=== PATIENT | female | born 1955 | race Caucasian/White ===

== ENCOUNTER → 2017-08-31 | Outpatient (CLI) | payer OTHER ==
--- NOTE | 2017-08-31 10:41 | WWHP ---
[facility] - HISTORY AND PHYSICAL DATE OF SERVICE: 08/31/2017 CHIEF COMPLAINT: The patient is here for her routine gynecologic exam and mammogram. HPI: This is a 62-year-old, G8, P5-0-3-5 with an LMP of 2009. The patient is without gynecologic complaints. PAST MEDICAL HISTORY: Left breast cancer in 2009 and is status post left mastectomy, but did not require adjuvant therapy. Also history of a cardiac arrhythmia and was treated with a pacemaker in 2013. MEDICATIONS: 1. Digoxin 0.182 mg daily. 2. Multivitamin daily. ALLERGIES: No known drug allergies. PAST SURGICAL HISTORY: Left breast mastectomy in 2009, pacemaker placed 2013, tubal ligation, and previous tubal reversal in the past and 2 D&Cs in the past. 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 FAMILY HISTORY: Mother has hypertension. Daughter was diagnosed with lymphoma. SOCIAL HISTORY: She denies tobacco and drug use and has 0 to 2 alcohol containing drinks per week. She is a retired. She has been spending a lot of time with her daughter in [place] who is undergoing chemotherapy for lymphoma. REVIEW OF SYSTEMS: Weight has been stable. She denies respiratory, cardiac or GI problems. PHYSICAL EXAM: Blood pressure 147/88, height 5 feet 8 inches, weight 116 pounds, BMI 19, temperature 97.9, pulse 76. This is a well-developed, well-nourished, white female, who is alert and oriented x3, in no acute distress. HEENT is within normal limits. NECK: Supple without mass or thyromegaly. CHEST AND LUNGS: Clear to auscultation. HEART: Regular rate and rhythm. The pacemaker is palpable in the area just anterior to the left axilla and this is nontender. Breast exam is negative for mass or tenderness in the right breast and the left side is consistent with previous left mastectomy. There are no abnormal masses or tenderness. Axillary exam is negative for adenopathy. BACK: Negative for CVA tenderness. ABDOMEN: Soft, nontender, without palpable masses. PELVIC EXAM: External genitalia reveals moderate atrophy without lesions. Cervix and vagina reveals [id number] atrophy without lesions. There is no evidence of prolapse. The uterus is mid position, nongravid size and nontender. There are no palpable adnexal masses or tenderness. Rectovaginal exam is negative for mass or tenderness and is negative for occult blood. EXTREMITIES: Nontender. IMPRESSION: 1. A 62-year-old menopausal female with normal gynecologic exam. 2. History of left breast cancer, status post left mastectomy with no evidence of recurrence. 3. History of osteopenia. PLAN: 1. Pap smear was deferred since she had a normal one last year. 2. Self breast examination was discussed. 3. Right diagnostic mammogram will be done today. 4. Osteoporosis prevention was discussed. I have recommended bone density testing and she states she would like to do this next year. 5. I have recommended screening colonoscopy since she has not had this done. She has been talking to her primary care physician, Dr. Burnette, regarding colorectal screening and she may be doing a Cologuard testing as an alternative to colonoscopy. This will be done through Dr. Burnette. 6. She will return in 1 year. MMODL / IJN: [id number] /
== END | disposition home or self-care (01) ==
LOC: WWCWWP 08:58
PROVIDERS: ATTEND Obstetrics & Gynecology
DX: Z01.419 Encounter for gynecological examination (general) (routine) without abnormal findings (principal)

== ENCOUNTER → 2017-08-31 | Outpatient (CLI) | payer OTHER ==
--- NOTE | 2017-09-05 08:59 | MM ---
Reason for exam: additional evaluation requested from prior study. Last mammogram was performed 1 year and 1 month ago. History: Patient is postmenopausal and has history of breast cancer at age 54. Malignant left breast needle localization of both breasts, December 12, 2009. Mastectomy of the left breast, December 2009. Excisional biopsy of the left breast, April 22, 2005. Took tamoxifen for 3 years 6 months beginning at age 54. Physical Findings: Dr. Ignacio did not find any significant physical abnormalities on exam. MG 3D Diag Mammo W/Cad RT CC and MLO view(s) were taken of the right breast. Prior study comparison: August 04, 2016, right breast MG diagnostic mammo RT w CAD. July 23, 2015, right breast MG diagnostic mammo RT w CAD. The breast tissue is heterogeneously dense. This may lower the sensitivity of mammography. No suspicious abnormality. No significant new findings when compared with previous films. These results were verbally communicated with the patient and result sheet given to the patient on 08/31/17. ASSESSMENT: Negative, BI-RAD 1 RECOMMENDATION: Follow-up diagnostic mammogram of the right breast in 1 year.
== END | disposition home or self-care (01) ==
LOC: RADMAMWWP 09:02
PROVIDERS: ATTEND Internal Medicine Hematology & Oncology
DX: Z08 Encounter for follow-up examination after completed treatment for malignant neoplasm (principal); Z85.3 Personal history of malignant neoplasm of breast
CPT/HCPCS: G0206; G0279

== ENCOUNTER → 2018-09-12 | Outpatient (CLI) | payer MEDICARE ==
[2018-09-12 09:45] VITALS: BP 136/85; PULSE 69; TEMP 97.5; BMI 19.5
--- NOTE | 2018-09-12 10:25 | P.HPOB ---
History of Present Illness H&P Date: 09/12/18 Chief Complaint: The patient is here for her routine gynecologic exam and mammogram. This is a 63-year-old 035 with an LMP of 2009. The patient is without gynecologic complaints and denies any postmenopausal bleeding. Review of Systems She is gained 9 pounds of the last year. She denies respiratory, cardiac and G.I. problems. She denies maltreatment or problems with falling. : she has occasional urinary leakage especially when she coughs. She has also had episodes where she has urinary urgency and can leak if she does not get to the bathroom on time. Past Medical History Past Medical History: Cancer (Left breast cancer in 2009 status post left mastectomy.) Additional Past Medical History / Comment(s): left breast,Tachycardia SVT requiring a pacemaker. 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 History of Any Multi-Drug Resistant Organisms: None Reported Past Surgical History: Breast Surgery (Left mastectomy), Pacemaker (2013), Tubal Ligation Additional Past Surgical History / Comment(s): D&C,Tubal reversal,left breast removal Past Anesthesia/Blood Transfusion Reactions: Postoperative Nausea & Vomiting ( PONV) Type of Cardiac Device: Permanent Pacemaker Device Placement Date:: 2013 Past Psychological History: Anxiety, Depression Smoking Status: Never smoker Past Alcohol Use History: Occasional (2 per week) Past Drug Use History: None Reported Additional History: She is and is retired. She lost her daughter to lymphoma in 11/2017. - Past Family History Daughter(s) Family Medical History: Cancer ( from lymphoma at age 40.) Mother Family Medical History: Hypertension Medications and Allergies Home Medications Medication Instructions Recorded Confirmed Type Digoxin [Lanoxin] 125 mcg PO DAILY 09/12/18 09/12/18 History Multivitamin [Multivitamins Adult 1 each PO 09/12/18 History Gummies] Sertraline [Zoloft] 25 mg PO 09/12/18 History Allergies Allergy/AdvReac Type Severity Reaction Status Date / Time No Known Allergies Allergy Unverified 09/12/18 09:33 Exam Vital Signs Temp Pulse BP 09/12/18 09:35 97.5 F L 69 136/85 Intake and Output 09/11/18 09/12/18 09/12/18 22:59 06:59 14:59 Other: Weight 56.699 kg Height 5'7", weight 125 pounds, BMI 19.6. This is a well-developed well-nourished white female who is alert and oriented times 3 in no acute distress. HEENT: Within normal limits. NECK: Supple without mass or thyromegaly. CHEST AND LUNGS: Clear to auscultation. She has a palpable pacemaker in the left sub clavicular area. This is nontender. HEART: Regular rate and rhythm. BREASTS: left is consistent with previous mastectomy. There are no masses in this area. The right breast is without mass or discharge. AXILLARY EXAM: Negative for adenopathy. BACK: Negative for CVA tenderness. ABDOMEN: Soft, nontender, without palpable masses. PELVIC EXAM: Normal external genitalia with mild atrophy. Cervix and vagina appear normal with mild atrophy. There is no unusual discharge. There is no evidence of prolapse. The uterus is midposition, nongravid size and nontender. There are no palpable adnexal masses or tenderness. RECTAL EXAM: rectovaginal exam is negative for mass or tenderness and is negative for occult blood. EXTREMITIES: Nontender. IMPRESSION: 1. 63-year-old menopausal female with normal gynecologic exam. 2. Probable mild mixed urinary incontinence without any significant physical findings at this time. 3. History of osteopenia. 4. History of left breast cancer, status post left mastectomy with no evidence of recurrence. PLAN: 1. Pap smear was performed. 2. Self breast awareness was discussed with the patient. 3. Diagnostic right mammogram will be done today. 4. Osteoporosis prevention was discussed. I have stressed the importance of adequate calcium, vitamin D and regular exercise. Recommended amounts of calcium and vitamin D were also discussed. I have recommended repeating her bone density testing. She would like to do this next year. 5. I have recommended screening colonoscopy. She states she has discussed this with Dr. Burnette and his plan on doing Cologard testing instead. 6. She plans to get her flu shot in the near future. 7. I have recommended Kegal exercises. We have discussed how to do these. I have recommended she do 3 sets of 20 reps daily. 8. She will return in one year.
--- NOTE | 2018-09-12 11:08 | MM ---
Reason for exam: additional evaluation requested from prior study. Last mammogram was performed 1 year ago. History: Patient is postmenopausal and has history of breast cancer at age 54. Malignant left breast needle localization of both breasts, December 12, 2009. Mastectomy of the left breast, December 2009. Excisional biopsy of the left breast, April 22, 2005. Took tamoxifen for 3 years 6 months beginning at age 54. MG 3D Diag Mammo W/Cad RT CC and MLO view(s) were taken of the right breast. Technologist: Mariana Omalley, RT (R)(M) Prior study comparison: August 31, 2017, right breast MG 3d diag mammo w/cad RT. August 04, 2016, right breast MG diagnostic mammo RT w CAD. The breast tissue is heterogeneously dense. This may lower the sensitivity of mammography. No significant new findings when compared with previous films. These results were verbally communicated with the patient and result sheet given to the patient on 09/12/18. ASSESSMENT: Benign, BI-RAD 2 RECOMMENDATION: Follow-up diagnostic mammogram of the right breast in 1 year.
== END ==
LOC: WWCWWP 09:04
PROVIDERS: ATTEND Obstetrics & Gynecology
DX: Z08 Encounter for follow-up examination after completed treatment for malignant neoplasm (principal); Z85.3 Personal history of malignant neoplasm of breast
CPT/HCPCS: 77065; G0279; 77061

== ENCOUNTER → 2019-09-18 | Outpatient (CLI) | payer MEDICARE ==
[2019-09-18 08:46] VITALS: BP 149/94; PULSE 70; RESP 16; TEMP 97.7
--- NOTE | 2019-09-18 09:22 | P.HPOB ---
History of Present Illness H&P Date: 09/18/19 Chief Complaint: The patient is here for her routine gynecologic exam. This is a 64-year-old with an LMP of 2009. The patient is without gynecologic complaints. Review of Systems Her weight has been stable. She denies respiratory, cardiac and G.I. problems. She denies maltreatment or problems with falling. : she denies any significant problems with urinary leakage, but occasionally has to get to the bathroom right away. Past Medical History Past Medical History: Cancer Additional Past Medical History / Comment(s): left breast cancer 2009, Tachycardia SVT requiring a pacemaker. 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 History of Any Multi-Drug Resistant Organisms: None Reported Past Surgical History: Breast Surgery, Pacemaker, Tubal Ligation Additional Past Surgical History / Comment(s): D&C,Tubal reversal,left mastectomy. Past Anesthesia/Blood Transfusion Reactions: Postoperative Nausea & Vomiting (PONV) Type of Cardiac Device: Permanent Pacemaker Device Placement Date:: 2013 Past Psychological History: Anxiety, Depression Smoking Status: Never smoker Past Alcohol Use History: Occasional (0-2 per week) Past Drug Use History: None Reported Additional History: She is and is not sexually active. She is retired. - Past Family History Daughter(s) Family Medical History: Cancer Additional Family Medical History / Comment(s): from lymphoma at age 40. Mother Family Medical History: Hypertension Medications and Allergies Home Medications Medication Instructions Recorded Confirmed Type Digoxin [Lanoxin] 125 mcg PO DAILY 09/12/18 09/18/19 History Multivitamin [Multivitamins Adult 1 each PO HS 09/12/18 09/18/19 History Gummies] Sertraline [Zoloft] 25 mg PO DAILY 09/12/18 09/18/19 History Allergies Allergy/AdvReac Type Severity Reaction Status Date / Time No Known Allergies Allergy Unverified 09/18/19 08:46 Exam Vital Signs Temp Pulse Resp BP Pulse Ox 09/18/19 08:44 97.7 F 70 16 149/94 100 Intake and Output 09/17/19 09/18/19 09/18/19 22:59 06:59 14:59 Other: Weight 56.245 kg Height 5 feet 7 inches, weight 124 pounds, BMI 19.4. This is a well-developed well-nourished white female who is alert and oriented times 3 in no acute distress. HEENT: Within normal limits. NECK: Supple without mass or thyromegaly. CHEST AND LUNGS: Clear to auscultation. The patient's pacemaker is palpable in the upper left chest region. HEART: Regular rate and rhythm. BREASTS: without mass or discharge. Left is consistent with previous mastectomy AXILLARY EXAM: Negative for adenopathy. BACK: Negative for CVA tenderness. ABDOMEN: Soft, nontender, without palpable masses. PELVIC EXAM: Normal external genitalia with mild to moderate atrophy. Cervix and vagina appear normal with mild to moderate atrophy. There is no unusual discharge. There is no evidence of prolapse. The uterus is midposition, nongravid size and nontender. There are no palpable adnexal masses or tenderness. RECTAL EXAM: Rectovaginal exam is negative for mass or tenderness and is negative for occult blood. EXTREMITIES: Nontender. IMPRESSION: 1. 64-year-old menopausal female with normal gynecologic exam. 2. History of osteopenia. 3. History of left breast cancer status post left mastectomy with no evidence of recurrence. PLAN: 1. Pap smears have been discontinued since she is considered low risk. She is greater than 65 years of age, has had no history of cervical problems and has been adequately screened. 2. Self breast awareness was discussed with the patient. 3. Diagnostic right mammogram is recommended and she is scheduled to have this done tomorrow. The order slip was given to the patient for this. 4. Osteoporosis prevention was discussed. I have stressed the importance of adequate calcium, vitamin D and regular exercise. Recommended amounts of c alcium and vitamin D were also discussed. I have recommended bone density screening since her last one was done in 2014. The order slip was given to the patient for this. 5. I have recommended that she take her own blood pressures at home on a regular basis. She will follow-up with Dr. Burnette or clinical sciences professor for blood pressure elevations. 6. She states she had cologuard testing earlier this year and is declining colonoscopies. 7. The patient was advised to return in 1-2 years for her well woman examination.
== END | disposition home or self-care (01) ==
LOC: WWCWWP 08:24
PROVIDERS: ATTEND Obstetrics & Gynecology
DX: Z53.9 Procedure and treatment not carried out, unspecified reason (principal)

== ENCOUNTER → 2019-09-19 | Outpatient (CLI) | payer MEDICARE ==
--- NOTE | 2019-09-19 14:09 | MM ---
Reason for exam: additional evaluation requested from prior study. Last mammogram was performed 1 year ago. History: Patient is postmenopausal and has history of breast cancer at age 54. Malignant left breast needle localization of both breasts, December 12, 2009. Mastectomy of the left breast, December 2009. Excisional biopsy of the left breast, April 22, 2005. Took tamoxifen for 3 years 6 months beginning at age 54. Physical Findings: Nurse did not find any significant physical abnormalities on exam. MG 3D Diag Mammo W/Cad RT CC and MLO view(s) were taken of the right breast. Prior study comparison: September 12, 2018, right breast MG 3d diag mammo w/cad RT. August 31, 2017, right breast MG 3d diag mammo w/cad RT. The breast tissue is heterogeneously dense. This may lower the sensitivity of mammography. No suspicious abnormality. No significant new findings when compared with previous films. These results were verbally communicated with the patient and result sheet given to the patient on 09/19/19. ASSESSMENT: Negative, BI-RAD 1 RECOMMENDATION: Follow-up diagnostic mammogram of the right breast in 1 year.
== END | disposition home or self-care (01) ==
LOC: RADMAMWWP 12:34
PROVIDERS: ATTEND Internal Medicine Hematology & Oncology
DX: Z08 Encounter for follow-up examination after completed treatment for malignant neoplasm (principal); Z85.3 Personal history of malignant neoplasm of breast
CPT/HCPCS: 77061; 77065

== ENCOUNTER → 2020-09-24 | Outpatient (CLI) | payer MEDICARE ==
[2020-09-24 09:31] VITALS: BP 136/87; PULSE 71; RESP 16; TEMP 97.8
--- NOTE | 2020-09-24 10:16 | P.HPOB ---
History of Present Illness H&P Date: 09/24/20 Chief Complaint: The patient is here for her routine gynecologic exam. This is a 65-year-old with an LMP of 2009. The patient is without gynecologic complaints. Review of Systems The patient's weight has been stable over the last year. She denies respiratory, cardiac, or G.I. problems. Past Medical History Past Medical History: Cancer, Hyperlipidemia Additional Past Medical History / Comment(s): left [id number],Tachycardia SVT requiring a pacemaker. 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 History of Any Multi-Drug Resistant Organisms: None Reported Past Surgical History: Breast Surgery, Pacemaker, Tubal Ligation Additional Past Surgical History / Comment(s): D&C,Tubal reversal,left mastectomy Past Anesthesia/Blood Transfusion Reactions: Postoperative Nausea & Vomiting (PONV) Type of Cardiac Device: Permanent Pacemaker Device Placement Date:: 2013 Past Psychological History: Anxiety, Depression Smoking Status: Never smoker Past Alcohol Use History: Occasional (3 or 4 per month) Past Drug Use History: None Reported Additional History: She is and is not sexually active. She is retired, but now is working at a [employer]. - Past Family History Daughter(s) Family Medical History: Cancer Additional Family Medical History / Comment(s): from lymphoma at age 40. Mother Family Medical History: Hypertension Medications and Allergies Home Medications Medication Instructions Recorded Confirmed Type Digoxin [Lanoxin] 125 mcg PO DAILY 09/12/18 09/24/20 History Multivitamin [Multivitamins Adult 1 each PO HS 09/12/18 09/24/20 History Gummies] Sertraline [Zoloft] 25 mg PO DAILY 09/12/18 09/24/20 History Atorvastatin [Lipitor] 20 mg PO HS 09/24/20 09/24/20 History Cholecalciferol [Vitamin D3 (25 1,000 unit PO DAILY 09/24/20 09/24/20 History Mcg = 1000 Iu)] Allergies Allergy/AdvReac Type Severity Reaction Status Date / Time pneumococcal vaccine AdvReac Swelling Unverified 09/24/20 09:24 Exam Vital Signs Temp Pulse Resp BP Pulse Ox 09/24/20 09:26 97.8 F 71 16 136/87 100 Intake and Output 09/23/20 09/24/20 09/24/20 22:59 06:59 14:59 Other: Weight 56.245 kg Height 5 feet 7 inches, weight 124 pounds, BMI 19.4. This is a well-developed well-nourished white female who is alert and oriented times 3 in no acute distress. HEENT: Within normal limits. NECK: Supple without mass or thyromegaly. CHEST AND LUNGS: Clear to auscultation. There is a palpable pacemaker inferior to the left clavicle. This is nontender. HEART: Regular rate and rhythm. BREASTS: The left is consistent with previous mastectomy. There are no masses. The right breast is without mass or discharge. AXILLARY EXAM: Negative for adenopathy. BACK: Negative for CVA tenderness. ABDOMEN: Soft, nontender, without palpable masses. PELVIC EXAM: Normal external genitalia with mild to moderate atrophy. Cervix and vagina appear normal mild to moderate atrophy. There is no unusual discharge. There is no evidence of prolapse. The uterus is midposition, nongravid size and nontender. There are no palpable adnexal masses or tenderness. RECTAL EXAM: Rectovaginal exam is negative for mass or tenderness and is negative for occult blood. EXTREMITIES: Nontender. IMPRESSION: 1. 65-year-old menopausal female with normal gynecologic exam. 2. History of left breast cancer status post left mastectomy with no evidence of recurrence on exam today. 3. History of osteopenia. PLAN: 1. Pap smears have been discontinued since she is considered low risk and has had adequate screening. 2. Self breast awareness was discussed with the patient. 3. Diagnostic right mammogram is due and the order slip was given to the patient for this. 4. Osteoporosis prevention was discussed. I have stressed the importance of adequate calcium, vitamin D and regular exercise. Recommended amounts of calcium and vitamin D were also discussed. I have recommended repeating her bone density testing and the order slip was given to the patient for this. 5. She has done Cologuard testing for colo-rectal screening through her PCP. 6. She was advised to return in one year for her annual well woman exam.
== END | disposition home or self-care (01) ==
LOC: WWCWWP 09:14
PROVIDERS: ATTEND Obstetrics & Gynecology
DX: Z53.9 Procedure and treatment not carried out, unspecified reason (principal)

== ENCOUNTER → 2020-12-08 | Outpatient (CLI) | payer MEDICARE ==
--- NOTE | 2020-12-08 11:55 | MM ---
Reason for exam: additional evaluation requested from prior study. Last mammogram was performed 1 year and 3 months ago. History: Patient is postmenopausal and has history of breast cancer at age 54. Malignant left breast needle localization of both breasts, December 12, 2009. Mastectomy of the left breast, December 2009. Excisional biopsy of the left breast, April 22, 2005. Took hormonal contraceptives for 3 months. Took tamoxifen for 3 years 6 months beginning at age 54. Physical Findings: Nurse did not find any significant physical abnormalities on exam. MG 3D Diag Mammo W/Cad RT CC and MLO view(s) were taken of the right breast. Prior study comparison: September 19, 2019, right breast MG 3d diag mammo w/cad RT. September 12, 2018, right breast MG 3d diag mammo w/cad RT. The breast tissue is heterogeneously dense. This may lower the sensitivity of mammography. Punctate 12 o'clock calcification is unchanged. Nurse palpated thickening at 5-6 o'clock. These results were verbally communicated with the patient and result sheet given to the patient on 12/08/20. ASSESSMENT: Incomplete: need additional imaging evaluation, BI-RAD 0 RECOMMENDATION: Ultrasound of the right breast.
--- NOTE | 2020-12-08 11:58 | USB ---
Reason for exam: additional evaluation requested from abnormal screening. History: Patient is postmenopausal and has history of breast cancer at age 54. Malignant left breast needle localization of both breasts, December 12, 2009. Mastectomy of the left breast, December 2009. Excisional biopsy of the left breast, April 22, 2005. Took hormonal contraceptives for 3 months. Took tamoxifen for 3 years 6 months beginning at age 54. US Breast Limited RT Right limited breast ultrasound including focal area of concern, retroareolar and axilla demonstrates a 1.5 x 1.1 x 1.0cm lymph node at the axilla, 5mm thickness, likely reactive. No cystic or solid lesion seen. Scanned 12-5 o'clock. No abnormality at the nurse palpated 5 o'clock thickening. These results were verbally communicated with the patient and result sheet given to the patient on 12/08/20. ASSESSMENT: Probably benign, BI-RAD 3 RECOMMENDATION: Ultrasound of the right breast in 3 months for axillary nodes that are excessively thickened and borderline enlarged, likely reactive to Covid vaccine. MTDD
== END ==
LOC: RADMAMWWP 10:04
PROVIDERS: ATTEND Internal Medicine Hematology & Oncology
DX: R92.2 Inconclusive mammogram (principal); Z85.3 Personal history of malignant neoplasm of breast; Z78.0 Asymptomatic menopausal state
CPT/HCPCS: 77065; 76642; G0279; 77061

== ENCOUNTER → 2021-03-10 | Outpatient (CLI) | payer MEDICARE ==
--- NOTE | 2021-03-10 14:20 | USB ---
Reason for exam: clinical finding. History: Patient is postmenopausal and has history of breast cancer at age 54. Malignant left breast needle localization of both breasts, December 12, 2009. Mastectomy of the left breast, December 2009. Excisional biopsy of the left breast, April 22, 2005. Took hormonal contraceptives for 3 months. Took tamoxifen for 3 years 6 months beginning at age 54. Physical Findings: Nurse did not find any significant physical abnormalities on exam. US Breast Axilla RT Right breast axilla ultrasound demonstrates a 2.4 x 1.0 x 0.7cm oval lymph node at the axilla, thickened cortex 3.5mm likely reactive 3 month follow up right axillary ultrasound. These results were verbally communicated with the patient and result sheet given to the patient on 03/10/21. ASSESSMENT: Probably benign, BI-RAD 3 RECOMMENDATION: Ultrasound of the right breast in 3 months.
== END | disposition home or self-care (01) ==
LOC: RADUSWWP 13:26
PROVIDERS: ATTEND Internal Medicine Hematology & Oncology
DX: I89.8 Other specified noninfective disorders of lymphatic vessels and lymph nodes (principal); Z85.3 Personal history of malignant neoplasm of breast; Z78.0 Asymptomatic menopausal state

== ENCOUNTER → 2021-07-06 | Outpatient (CLI) | payer MEDICARE ==
--- NOTE | 2021-07-06 09:58 | USB ---
Reason for exam: follow-up at short interval from prior study. History: Patient is postmenopausal and has history of breast cancer at age 54. Malignant left breast needle localization of both breasts, December 12, 2009. Mastectomy of the left breast, December 2009. Excisional biopsy of the left breast, April 22, 2005. Took hormonal contraceptives for 3 months. Took tamoxifen for 3 years 6 months beginning at age 54. Physical Findings: Nurse did not find any significant physical abnormalities on exam. US Breast Axilla RT Right breast axilla ultrasound demonstrates a 1.1 x 1.0 x 0.8cm lesion with 3mm persistent thickened cortex at the axilla and a 1.3 x 1.0 x 0.8cm lesion with 2mm cortex at the axilla. Compared to 03/10/21 ultrasound. Thickening is persistent, 6 months from vaccine. Other etiologies should be considered. Consider PET/CT or CT of chest. These results were verbally communicated with the patient and result sheet given to the patient on 07/06/21. ASSESSMENT: Suspicious, BI-RAD 4 RECOMMENDATION: Further imaging of the right breast. (see above discussion) Surgical consultation of the right breast. Called Dr. Butt's office with mammographic findings. PRELIMINARY REPORT CALLED AND FAXED TO DR. BUTT ON 07/06/21.
== END | disposition home or self-care (01) ==
LOC: RADUSWWP 08:49
PROVIDERS: ATTEND Internal Medicine Hematology & Oncology
DX: N64.89 Other specified disorders of breast (principal); Z78.0 Asymptomatic menopausal state; Z85.3 Personal history of malignant neoplasm of breast; Z79.3 Long term (current) use of hormonal contraceptives

== ENCOUNTER 2021-07-15 08:47 | Day surgery (SDC) | payer MEDICARE ==
[2021-07-15 09:26] VITALS: PULSE 70; TEMP 98
[2021-07-15 10:35] VITALS: BP 149/82; RESP 16
--- NOTE | 2021-07-15 11:58 | US ---
ULTRASOUND GUIDED CORE BIOPSY RIGHT AXILLA LYMPH NODE: CLINICAL HISTORY: Right axilla lymphadenopathy FINDINGS: The procedure was explained to the patient. The risks, complications, benefits and alternatives were discussed and any questions were answered. Informed consent was obtained. Patient was placed supin e on the ultrasound table and prepped and draped in the usual sterile fashion. Utilizing a 18 gauge needle, five passes were made into the requested right axilla lymph node. Patient was stable throughout the procedure. Pathology is pending. All elements of maximal barrier technique were utilized. IMPRESSION: 1. Successful ultrasound guided core biopsy right axilla lymph node.
== END 2021-07-15 10:33 | disposition home or self-care (01) ==
LOC: RADPROMAIN 08:47
PROVIDERS: ATTEND Internal Medicine Hematology & Oncology
DX: C83.04 Small cell B-cell lymphoma, lymph nodes of axilla and upper limb (principal); C85.94 Non-Hodgkin lymphoma, unspecified, lymph nodes of axilla and upper limb; Z85.3 Personal history of malignant neoplasm of breast
CPT/HCPCS: 38505; 76942; 88305; 88341; 88342

== ENCOUNTER → 2021-08-24 | Outpatient (CLI) | payer MEDICARE ==
--- NOTE | 2021-08-25 09:30 | CT ---
EXAMINATION TYPE: CT ChestAbdPelvis w con DATE OF EXAM: 08/24/2021 COMPARISON: None HISTORY: h/o lympoma CT DLP: 460.2 mGycm Automated exposure control for dose reduction was used. CONTRAST: CT scan of the chest, abdomen and pelvis is performed with Oral Contrast and with IV Contrast, patien t injected with 80 mL of Isovue 300. FINDINGS: LUNGS: The lungs are grossly clear, there is no concerning parenchymal mass or nodule identified. T here is no pleural effusion or pneumothorax seen. The tracheobronchial tree is patent. Apical pleura l thickening noted and changes suggestive of mild COPD. There is a 4 mm nodules seen involving the bria ng bases bilaterally with 2 on the left and one on the right including image 52 on the right and imag e 55 on the left too small to characterize but likely benign. Additional right lower lobe pulmonary n odule measuring 4 mm axial image 42. MEDIASTINUM: There is shotty adenopathy in the axilla bilaterally with the largest lymph node measuri ng a short axis of 1 cm on the right. Within the hilum and mediastinum there also appears to be evidence of adenopathy with the largest lym ph node seen in the subcarinal region measuring 1.3 cm and in the right hilum measuring 1.1 cm in karime rt axis. Cardiac device with cardiac leads noted. OTHER: No additional significant abnormality is seen. LIVER/GB: No significant abnormality is appreciated. PANCREAS: No significant abnormality is seen. SPLEEN: No significant abnormality is seen. ADRENALS: No significant abnormality is seen. KIDNEYS: 5 mm hypodensity right upper pole kidney most suggestive of tiny cysts. BOWEL: No significant abnormality is seen. LYMPH NODES: There is a single retroperitoneal the lymph node on axial image 78 measuring a short axi s of 1.4 cm. OSSEOUS STRUCTURES: No significant abnormality is seen. 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 Arthropathy of the SI joints. Disc space s are well-maintained. IMPRESSION: 1. Mild adenopathy as measured above involving the mediastinum, axilla and hilum with a single pathol ogic lymph node in the retroperitoneum on the left measuring a short axis of 1.4 cm, left para-aortic region. 2. There are multiple sub-5 mm pulmonary nodules too small to characterize but likely benign. Six-mon th follow-up could be obtained to confirm stability.
== END | disposition home or self-care (01) ==
LOC: RADCTMAIN 14:57
PROVIDERS: ATTEND Internal Medicine Hematology & Oncology
DX: R59.0 Localized enlarged lymph nodes (principal); R91.8 Other nonspecific abnormal finding of lung field; Z85.72 Personal history of non-Hodgkin lymphomas
CPT/HCPCS: 82565; 84520; 71260; 74177; 36415; Q9967

== ENCOUNTER → 2022-01-20 | Outpatient (CLI) | payer MEDICARE ==
[2022-01-20 09:30] VITALS: BP 136/83; PULSE 70; RESP 17; TEMP 97.8
--- NOTE | 2022-01-20 10:08 | P.HPOB ---
History of Present Illness H&P Date: 01/20/22 Chief Complaint: The patient is here for her routine gynecologic exam and ma mmogram. This is a 66-year-old [id number] with an LMP of 2009. The patient is without gynecologic complaints. Review of Systems The patient has lost 6 pounds over the last year. She denies respiratory, cardiac, or G.I. problems. Past Medical History Past Medical History: Cancer, Hyperlipidemia Additional Past Medical History / Comment(s): Left breastCA 2009,Tachycardia SVT requiring a pacemaker. Low-grade lymphoma (Dr. Mar moreno). 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 History of Any Multi-Drug Resistant Organisms: None Reported Past Surgical History: Breast Surgery, Pacemaker, Tubal Ligation Additional Past Surgical History / Comment(s): D&C,Tubal reversal,left mastectomy Past Anesthesia/Blood Transfusion Reactions: Postoperative Nausea & Vomiting (PONV) Type of Cardiac Device: Permanent Pacemaker Device Placement Date:: 2013 Past Psychological History: Anxiety, Depression Smoking Status: Never smoker Past Alcohol Use History: Occasional (1 per week) Past Drug Use History: None Reported Additional History: She is and is not sexually active. She is retired, but now works at a [employer]. - Past Family History Daughter(s) Family Medical History: Cancer Additional Family Medical History / Comment(s): from lymphoma at age 40. Mother Family Medical History: Hypertension Medications and Allergies Home Medications Medication Instructions Recorded Confirmed Type Multivitamin [Multivitamins Adult 1 each PO HS 09/12/18 07/15/21 History Gummies] Sertraline [Zoloft] 25 mg PO DAILY 09/12/18 07/15/21 History Atorvastatin [Lipitor] 20 mg PO HS 09/24/20 07/15/21 History Cholecalciferol [Vitamin D3 (25 1,000 unit PO DAILY 09/24/20 07/15/21 History Mcg = 1000 Iu)] Acetaminophen Tab [Tylenol] 325 mg PO Q4H PRN 07/09/21 07/15/21 History Diltiazem HCl [Cardizem] 120 mg PO DAILY 07/09/21 07/15/21 History Allergies Allergy/AdvReac Type Severity Reaction Status Date / Time pneumococcal vaccine AdvReac Swelling Verified 01/20/22 09:24 Exam Vital Signs Temp Pulse Resp BP Pulse Ox 01/20/22 09:27 97.8 F 70 17 136/83 99 Intake and Output 01/19/22 01/20/22 01/20/22 22:59 06:59 14:59 Other: Weight 53.524 kg Height 5 feet 6 inches, weight 118 pounds, BMI 19.0. This is a well-developed well-nourished white female who is alert and oriented times 3 in no acute distress. HEENT: Within normal limits. NECK: Supple without mass or thyromegaly. CHEST AND LUNGS: Clear to auscultation. A pacemaker is palpable in the left subclavicular area and is nontender. HEART: Regular rate and rhythm. BREASTS: Left side is consistent with a left mastectomy which is well healed. There are no masses. The right breast is without mass or discharge. AXILLARY EXAM: Negative for adenopathy. BACK: Negative for CVA tenderness. ABDOMEN: Soft, nontender, without palpable masses. PELVIC EXAM: Normal external genitalia with mild to moderate atrophy. Cervix and vagina appear normal mild to moderate atrophy. There is no unusual discharge. There is no evidence of prolapse. The uterus is midposition, nongravid size and nontender. There are no palpable adnexal masses or tenderness. RECTAL EXAM: Rectovaginal exam is negative for mass or tenderness and is negative for occult blood. EXTREMITIES: Nontender. IMPRESSION: 1. 66-year-old menopausal female with normal gynecologic exam. 2. History of left breast cancer status post left mastectomy with no evidence of recurrence on exam today. 3. History of osteopenia. PLAN: 1. Pap smears have been discontinued. 2. Self breast awareness was discussed with the patient. We have also discussed symptoms associated with inflammatory breast cancer. 3. Diagnostic right mammogram will be done today. 4. Osteoporosis prevention was discussed. I have stressed the importance of adequate calcium, vitamin D and regular exercise. Recommended amounts of calcium and vitamin D were also discussed. I have recommended bone density testing since her last one was about 7 years ago. The order slip was given to the patient for this. She states she will do this later in the year since she will be very busy in the next several weeks. 5. Colorectal cancer screening was discussed. She states she will be doing Cologuard testing through her PCP. 6. She has completed her Covid vaccination series and did receive a booster. 7. She was advised to return in one year for her annual well woman exam.
--- NOTE | 2022-01-20 10:31 | MM ---
Reason for exam: additional evaluation requested from prior study. Last mammogram was performed 1 year and 1 month ago. History: Patient is postmenopausal, has history of breast cancer at age 54, and history of other cancer. Malignant left breast needle localization of both breasts, December 12, 2009. Mastectomy of the left breast, December 2009. Excisional biopsy of the left breast, April 22, 2005. Took hormonal contraceptives for 3 months. Took tamoxifen for 3 years 6 months beginning at age 54. Physical Findings: A clinical breast exam by your physician is recommended on an annual basis and results should be correlated with mammographic findings. MG 3D Diag Mammo W/Cad RT CC and MLO view(s) were taken of the right breast. Prior study comparison: December 08, 2020, right breast MG 3d diag mammo w/cad RT. September 19, 2019, right breast MG 3d diag mammo w/cad RT. The breast tissue is heterogeneously dense. This may lower the sensitivity of mammography. No significant new findings when compared with previous films. Results were given to the patient verbally at the time of the exam. ASSESSMENT: Benign, BI-RAD 2 RECOMMENDATION: Routine screening mammogram of the right breast in 1 year.
== END ==
LOC: WWCWWP 09:11
PROVIDERS: ATTEND Obstetrics & Gynecology
DX: Z01.419 Encounter for gynecological examination (general) (routine) without abnormal findings (principal); Z85.3 Personal history of malignant neoplasm of breast; E78.5 Hyperlipidemia, unspecified; F41.9 Anxiety disorder, unspecified; F32.A Depression, unspecified; Z90.12 Acquired absence of left breast and nipple; Z78.0 Asymptomatic menopausal state; Z87.39 Personal history of other diseases of the musculoskeletal system and connective tissue; Z88.7 Allergy status to serum and vaccine
CPT/HCPCS: 77065; G0279; 77061

== ENCOUNTER → 2023-03-01 | Outpatient (CLI) | payer MEDICARE ==
[2023-03-01 10:28] VITALS: BP 141/88; PULSE 68; RESP 17; TEMP 98.7
--- NOTE | 2023-03-01 11:02 | P.HPOB ---
History of Present Illness H&P Date: 03/01/23 Chief Complaint: The patient is here for her routine gynecologic exam and ma mmogram. This is a 67-year-old with an LMP of 2009. She is without gynecologic complaints and denies any postmenopausal bleeding. Review of Systems The patient has gained 15 pounds over the last year. She denies respiratory, cardiac, or G.I. problems. Past Medical History Past Medical History: Cancer, Hyperlipidemia Additional Past Medical History / Comment(s): Left breastCA 2009,Tachycardia SVT requiring a pacemaker. Low-grade lymphoma (Dr. Mar moreno). Osteopenia. 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 History of Any Multi-Drug Resistant Organisms: None Reported Past Surgical History: Breast Surgery, Pacemaker, Tubal Ligation Additional Past Surgical History / Comment(s): D&C,Tubal reversal,left mastectomy. Past Anesthesia/Blood Transfusion Reactions: Postoperative Nausea & Vomiting (PONV) Type of Cardiac Device: Permanent Pacemaker Device Placement Date:: 2013 Past Psychological History: Anxiety, Depression Smoking Status: Never smoker Past Alcohol Use History: Occasional (3 or 4 per week.) Past Drug Use History: None Reported Additional History: She is and is not sexually active. She is retired and plans to travel in her motor home. - Past Family History Daughter(s) Family Medical History: Cancer Additional Family Medical History / Comment(s): from lymphoma at age 40. Mother Family Medical History: Hypertension Medications and Allergies Home Medications Medication Instructions Recorded Confirmed Type Multivitamin [Multivitamins Adult 1 each PO HS 09/12/18 03/01/23 History Gummies] Sertraline [Zoloft] 25 mg PO DAILY 09/12/18 03/01/23 History Atorvastatin [Lipitor] 20 mg PO HS 09/24/20 03/01/23 History Cholecalciferol [Vitamin D3 (25 1,000 unit PO DAILY 09/24/20 03/01/23 History Mcg = 1000 Iu)] Acetaminophen Tab [Tylenol] 325 mg PO Q4H PRN 07/09/21 03/01/23 History dilTIAZem HCL [Cardizem] 120 mg PO DAILY 07/09/21 03/01/23 History Allergies Allergy/AdvReac Type Severity Reaction Status Date / Time pneumococcal vaccine AdvReac Swelling Verified 03/01/23 10:21 Exam Vital Signs Temp Pulse Resp BP Pulse Ox 03/01/23 10:24 98.7 F 68 17 141/88 99 Intake and Output 02/28/23 03/01/23 03/01/23 22:59 06:59 14:59 Other: Weight 60.328 kg Height 5 feet 7 inches, weight 133 pounds, BMI 20.8. This is a well-developed well-nourished white female who is alert and oriented times 3 in no acute distress. HEENT: Within normal limits. NECK: Supple without mass or thyromegaly. CHEST AND LUNGS: Clear to auscultation. HEART: Regular rate and rhythm. BREASTS: She is status post left mastectomy with no left-sided masses or skin changes. The right breast is without mass or discharge. AXILLARY EXAM: Negative for adenopathy. BACK: Negative for CVA tenderness. ABDOMEN: Soft, nontender, without palpable masses. PELVIC EXAM: Normal external genitalia with mild to moderate atrophy. Cervix and vagina appear normal with mild atrophy. There is no unusual discharge. There is no evidence of prolapse. The uterus is midposition, nongravid size and nontender. There are no palpable adnexal masses or tenderness. RECTAL EXAM: Rectovaginal exam is negative for mass or tenderness and is negative for occult blood. EXTREMITIES: Nontender. IMPRESSION: 1. 67-year-old menopausal female status post left mastectomy in 2009, with normal gynecologic exam. No evidence of recurrence of the breast cancer. 2. History of osteopenia. PLAN: 1. Pap smears have been discontinued. 2. Self breast awareness was discussed with the patient. We have also discu ssed symptoms associated with inflammatory breast cancer. 3. Mammogram will be done today. 4. Osteoporosis prevention was discussed. I have stressed the importance of adequate calcium, vitamin D and regular exercise. Recommended amounts of calcium and vitamin D were also discussed. Her last bone density test was done in 2014. I recommended repeating the bone density test and the order slip was given to the patient for this. 5. Colorectal cancer screening has been done through her PCP in the form of Cologuard which was last done in 2021. 6. She was advised to return in one year for her annual well woman exam.
--- NOTE | 2023-03-02 12:26 | MM ---
Reason for Exam: Screening (asymptomatic). Last mammogram was performed 1 year(s) and 1 month(s) ago. Patient History: Menarche at age 14. First Full-Term at age 19. Postmenopausal. Patient has history of breast feeding. Breast cancer, left, age 54. Other cancer, age 66. Hormonal Contraceptives for 3 months. Tamoxifen, starting at age 54 for 3 years, 6 months. 12/2009, Mastectomy on the Left side. 12/12/2009, Bilateral Malignant Excisional Biopsy. Prior Study Comparison: 08/31/2017 Right Diagnostic Mammogram, [facility]. 09/12/2018 Right Diagnostic Mammogram, [facility]. 09/19/2019 Right Diagnostic Mammogram, [facility]. 12/08/2020 Right Diagnostic Mammogram, [facility]. 01/20/2022 Right Diagnostic Mammogram, [facility]. Tissue Density: Right: The breast tissue is heterogeneously dense. This may lower the sensitivity of mammography. Findings: Analyzed By CAD. Benign-appearing vascular calcification in the upper outer right breast is redemonstrated. There is no suspicious no group of microcalcifications or new suspicious mass in the right breast. Overall Assessment: Benign, BI-RAD 2 Management: Screening Mammogram of the right breast in 1 year. . Patient should continue monthly self-breast exams. A clinical breast exam by your physician is recommended on an annual basis. This exam should not preclude additional follow-up of suspicious palpable abnormalities. Note on Kristel scores and lifetime risk: 1. A Kristel score greater than 3% is considered moderate risk. If this is the case, consider specialist referral to assess eligibility for a risk reducing agent. 2. If overall lifetime risk for the development of breast cancer is 20% or higher, the patient may qualify for future screening with alternating mammogram and breast MRI. Electronically signed and approved by: Eldon Solano M.D.
== END ==
LOC: WWCWWP 10:15
PROVIDERS: ATTEND Obstetrics & Gynecology
DX: Z12.31 Encounter for screening mammogram for malignant neoplasm of breast (principal); Z01.419 Encounter for gynecological examination (general) (routine) without abnormal findings; E78.5 Hyperlipidemia, unspecified
CPT/HCPCS: 77067

== ENCOUNTER → 2023-03-21 | Outpatient (CLI) | payer MEDICARE ==
--- NOTE | 2023-03-21 11:06 | BD ---
EXAMINATION TYPE: Axial Bone Density DATE OF EXAM: 03/21/2023 CLINICAL HISTORY: 67 years old Female. ICD-10 CODE: Z78.0 POST MENOPUASAL WITHOUT HRT Height: 5 ft 7 in Weight: 131 FRAX RISK QUESTIONS: Alcohol (3 or more units per day): no Family History (Parent hip fracture): no Glucocorticoids (More than 3mos): no (Ex: prednisone, prednisolone, methylprednisolone, dexamethasone, and hydrocortisone). History of Fracture in Adulthood: no Secondary Osteoporosis: 1. Type 1 Diabetes: no 2. Hyperthyroidism: no 3. Menopause before 45: no 4. Malnutrition: no 5. Chronic liver disease: no Rheumatoid Arthritis: no Current Tobacco Use: no RISK FACTORS HISTORY OF: Surgery to Spine/Hip(right/left)/Wrist (right/left): no Family History of Osteoporosis: no Active: yes Diet low in dairy products/other sources of calcium: no Postmenopausal woman: yes Take estrogen and/or progesterone medications: no Lost more than 2 inches in height since high school: no Frequent falls: no Poor Health: good Hyperparathyroidism: no Adrenal Insufficiency: no MEDICATIONS: Additional Medications: Lipitor, zoloft, cardia xl, Additional History: EXAM MEASUREMENTS: Bone mineral densitometry was performed using the [place] System. Bone mineral density as measured about the Lumbar spine is: ----- L1-L4(G/cm2): 1.060 T Score Values are as follows: ----- L1: -1.2 ----- L2: -0.5 ----- L3: -0.9 ----- L4: -1.4 ----- L1-L4: -1.0 Z Score Values are as follows: ----- L1: 0.6 ----- L2: 1.3 ----- L3: 1.0 ----- L4: 0.4 ----- L1-L4: 0.9 Bone mineral density has: decreased -6.5 % since study of: 2014 Bone mineral density about the R hip (g/cm2): 0.709 Bone mineral density about the L hip (g/cm2): 0.702 T Score values are as follows: -----R Neck: -2.4 -----L Neck: -2.4 -----R Total: -1.9 -----L Total: -2.0 Z Score values are as follows: -----R Neck: -0.6 -----L Neck: -0.6 -----R Total: -0.3 -----L Total: -0.4 Bone mineral density has: decreased -8.8 % since study of: 2014 FRAX%s: The graph provided illustrates a 12.7 % chance for a major osteoporotic fx and a 3.3 % chance for the hips probability for fx in 10 years time. IMPRESSION: Osteopenia (T Score between -2.5 and -1). There is slightly increased risk of fracture and the patient may be considered for treatment. Re-Screen 2-5 years. NOTE: T-SCORE=SD OF THE YOUNG ADULT MEAN.
== END | disposition home or self-care (01) ==
LOC: RADBDWWP 09:09
PROVIDERS: ATTEND Obstetrics & Gynecology
DX: M85.89 Other specified disorders of bone density and structure, multiple sites (principal); Z78.0 Asymptomatic menopausal state
CPT/HCPCS: 77080

== ENCOUNTER → 2025-04-09 | Outpatient (CLI) | payer MEDICARE ==
[2025-04-09 13:01] VITALS: BP 124/67; PULSE 59; RESP 16; TEMP 98.3
--- NOTE | 2025-04-09 13:23 | P.HPOB ---
History of Present Illness H&P Date: 04/09/25 Chief Complaint: The patient is here for her routine gynecologic exam and ma mmogram. This is a 69-year-old -0-3-4 with an LMP of 2009. The patient is without gynecologic complaints. Review of Systems The patient's weight has been stable over the last year. She denies respiratory, cardiac, or G.I. problems. Past Medical History Past Medical History: Cancer, Hyperlipidemia Additional Past Medical History / Comment(s): Left breastCA 2009,Tachycardia SVT requiring a pacemaker. Low-grade lymphoma (Dr. Mar moreno). Osteopenia. 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 History of Any Multi-Drug Resistant Organisms: None Reported Past Surgical History: Breast Surgery, Pacemaker, Tubal Ligation Additional Past Surgical History / Comment(s): D&C,Tubal reversal,left mastectomy. Past Anesthesia/Blood Transfusion Reactions: Postoperative Nausea & Vomiting (PONV) Type of Cardiac Device: Permanent Pacemaker Device Placement Date:: 2013 Past Psychological History: Anxiety, Depression Smoking Status: Never smoker Past Alcohol Use History: Occasional (1/week.) Past Drug Use History: None Reported Additional History: She is and is not sexually active. She is retired and enjoys camping with her motorMiradoree. - Past Family History Daughter(s) Family Medical History: Cancer Additional Family Medical History / Comment(s): from lymphoma at age 40. Mother Family Medical History: Hypertension Medications and Allergies Home Medications Medication Instructions Recorded Confirmed Type Multivitamin [Multivitamins Adult 1 each PO HS 09/12/18 04/09/25 History Gummies] Sertraline [Zoloft] 25 mg PO DAILY 09/12/18 04/09/25 History Atorvastatin [Lipitor] 20 mg PO HS 09/24/20 04/09/25 History Cholecalciferol [Vitamin D3 (25 1,000 unit PO DAILY 09/24/20 04/09/25 History Mcg = 1000 Iu)] Acetaminophen Tab [Tylenol] 325 mg PO Q4H PRN 07/09/21 04/09/25 History dilTIAZem HCL [Cardizem] 120 mg PO DAILY 07/09/21 04/09/25 History Allergies Allergy/AdvReac Type Severity Reaction Status Date / Time pneumococcal vaccine AdvReac Swelling Verified 04/09/25 12:57 Exam Vital Signs Temp Pulse Resp BP Pulse Ox 04/09/25 12:59 98.3 F 59 L 16 124/67 97 Intake and Output 04/08/25 04/09/25 04/09/25 22:59 06:59 14:59 Other: Weight 58.967 kg Height 5 feet 7 inches, weight 130 pounds, BMI 20.4. This is a well-developed well-nourished white female who is alert and oriented t imes 3 in no acute distress. HEENT: Within normal limits. NECK: Supple without mass or thyromegaly. CHEST AND LUNGS: Clear to auscultation. HEART: Regular rate and rhythm. BREASTS: Right breast is without mass or discharge. There is right nipple inversion which the patient states she has had for many years. Left side is consistent with previous mastectomy. There are no masses. AXILLARY EXAM: Negative for adenopathy. BACK: Negative for CVA tenderness. ABDOMEN: Soft, nontender, without palpable masses. PELVIC EXAM: Normal external genitalia with mild to moderate atrophy. Cervix and vagina appear normal with mild to moderate atrophy. There is no unusual discharge. There is no evidence of prolapse. The uterus is midposition, nongravid size and nontender. There are no palpable adnexal masses or tenderness. RECTAL EXAM: Rectovaginal exam is negative for mass or tenderness and is negative for occult blood. EXTREMITIES: Nontender. IMPRESSION: 1. 69-year-old menopausal female with normal gynecologic exam. 2. History of left breast cancer status postmastectomy with no evidence of recurrence on exam today. 3. History of osteopenia. PLAN: 1. Pap smears have been discontinued. 2. Self breast awareness was discussed with the patient. We have also discussed symptoms associated with inflammatory breast cancer. 3. Screening Right mammogram will be done today. 4. Osteoporosis prevention was discussed. We will plan on repeating the bone density test today. 5. Cologuard testing was just recently done with results pending. This has been done through her PCP. 6. She was advised to return in one year for her annual well woman exam.
--- NOTE | 2025-04-09 17:25 | BD ---
EXAMINATION TYPE: Axial Bone Density DATE OF EXAM: 04/09/2025 CLINICAL HISTORY: 69 years old Female. ICD-10 CODE: Z780 POST MENOT WITHOUT HRT , Additional History : Height: 66 Weight: 128.9 FRAX RISK QUESTIONS: Alcohol (3 or more units per day): no Family History (Parent hip fracture): no Glucocorticoids (More than 3mos): no (Ex: prednisone, prednisolone, methylprednisolone, dexamethasone, and hydrocortisone). History of Fracture in Adulthood: no Secondary Osteoporosis: 1. Type 1 Diabetes: no 2. Hyperthyroidism: no 3. Menopause before 45: no 4. Malnutrition: no 5. Chronic liver disease: no Rheumatoid Arthritis: no Current Tobacco Use: no RISK FACTORS HISTORY OF: Hip Fracture (Right/Left): no Spine Fracture: no History of Wrist Fracture: no Surgery to Spine/Hip(right/left)/Wrist (right/left): no MEDICATIONS: Thyroid Medications: no Osteoporosis Medications:no EXAM MEASUREMENTS: Bone mineral densitometry was performed using the [employer]. Bone mineral density as measured about the Lumbar spine is: ----- L1-L4(G/cm2): 1.091 T Score Values are as follows: ----- L1: -1.2 ----- L2: -0.4 ----- L3: -0.6 ----- L4: -1.0 ----- L1-L4: -0.7 Z Score Values are as follows: ----- L1: 0.7 ----- L2: 1.5 ----- L3: 1.3 ----- L4: 0.9 ----- L1-L4: 1.2 Bone mineral density has: INCREASED 2.9% since the study of 03/21/2023 Bone mineral density about the R hip (g/cm2): 0.793 Bone mineral density about the L hip (g/cm2): 0.798 T Score values are as follows: -----R Neck: -1.9 -----L Neck: -2.0 -----R Total: -1.7 -----L Total: -1.7 Z Score values are as follows: -----R Neck: 0.0 -----L Neck: -0.1 -----R Total: 0.0 -----L Total: 0.0 Bone mineral density has: increased 4.2 since the study of 03/21/2023 FRAX%s: The graph provided illustrates a 11.2chance for a major osteoporotic fx and a 2.6ance for the hips probability for fx in 10 years time. IMPRESSION: Osteopenia (T Score between -2.5 and -1). There is slightly increased risk of fracture and the patient may be considered for treatment. Re-Screen 2-5 years. NOTE: T-SCORE=SD OF THE YOUNG ADULT MEAN. [facility], , 04/09/2025 5:22 PM
--- NOTE | 2025-04-09 18:13 | MM ---
Reason for Exam: Screening (asymptomatic). Last mammogram was performed 1 year(s) and 2 month(s) ago. Patient History: Menarche at age 14. First Full-Term at age 19. Postmenopausal. Patient has history of breast feeding. Breast cancer, left, age 54. Other cancer, age 66. Hormonal Contraceptives for 3 months. Tamoxifen, starting at age 54 for 3 years, 6 months. 12/2009, Mastectomy on the Left side. 04/22/2005, Excisional Biopsy on the Left side. 12/12/2009, Bilateral Malignant Excisional Biopsy. Prior Study Comparison: 09/12/2018 Right Diagnostic Mammogram, [facility]. 09/19/2019 Right Diagnostic Mammogram, [facility]. 12/08/2020 Right Diagnostic Mammogram, [facility]. 01/20/2022 Right Diagnostic Mammogram, [facility]. 03/01/2023 Right MG 3D scr evelyn unilateral w/cad., [facility]. 03/06/2024 Right MG screen evelyn unilateral w/cad, [facility]. Tissue Density: Right: The breasts are heterogeneously dense, which may obscure small masses. Findings: Benign vascular calcifications. There is no suspicious group of microcalcifications or new suspicious mass in either breast. Overall Assessment: Benign, BI-RAD 2 Management: Screening Mammogram of the right breast in 1 year. Patient should continue monthly self-breast exams. A clinical breast exam by your physician is recommended on an annual basis. This exam should not preclude additional follow-up of suspicious palpable abnormalities. [facility], , 04/09/2025 6:10 PM. Electronically signed and approved by: Sebastian Valladares M.D. Radiologist
== END ==
LOC: WWCWWP 12:25
PROVIDERS: ATTEND Obstetrics & Gynecology
DX: Z01.419 Encounter for gynecological examination (general) (routine) without abnormal findings (principal); Z12.31 Encounter for screening mammogram for malignant neoplasm of breast; Z78.0 Asymptomatic menopausal state; Z85.3 Personal history of malignant neoplasm of breast; Z90.12 Acquired absence of left breast and nipple; Z87.39 Personal history of other diseases of the musculoskeletal system and connective tissue; Z88.7 Allergy status to serum and vaccine
CPT/HCPCS: 77067; 77080

== ENCOUNTER → 2025-04-09 | Outpatient (CLI) | payer MEDICARE | END | disposition home or self-care (01) | LOC: RADMAMWWP 13:40 | PROVIDERS: ATTEND Internal Medicine Hematology & Oncology | DX: Z53.9 Procedure and treatment not carried out, unspecified reason (principal) ==